=== PATIENT | female | born 1970 | race Asian ===

== ENCOUNTER → 2017-11-10 | Day surgery (SDC) | payer OTHER ==
[2017-11-09 09:26] LABS: BASOPHILS # (AUTO) 0.1 (0.0-0.1); BASOPHILS % 0.8 % (0.0-1.0); EOSINOPHILS # (AUTO) 0.1 (0.0-0.4); EOSINOPHILS % 2.2 % (0.0-6.0); HEMATOCRIT 32.7 % (34.2-44.1); HEMOGLOBIN 10.4 g/dL (12.0-16.0); LYMPHOCYTES # (AUTO) 2.3 (1.0-3.2); LYMPHOCYTES % 35.4 % (18.0-39.1); MEAN CORPUSCULAR HGB CONC 31.8 g/dL (31-35); MEAN CORPUSCULAR VOLUME 87.9 fL (81-99); MONOCYTES # (AUTO) 0.7 (0.2-0.8); MONOCYTES % 10.7 % (4.4-11.3); NEUTROPHILS # (AUTO) 3.2 (2.1-6.9); NEUTROPHILS % 50.6 % (38.7-80.0); PLATELET COUNT 442 x10e3/uL (140-360); RED BLOOD COUNT 3.72 x10e6/uL (3.6-5.1); RED CELL DISTRIBUTION WIDTH 13.6 % (11.7-14.4)
[2017-11-09 09:51] LABS: ALANINE AMINOTRANSFERASE 14 IU/L (0-55); ALBUMIN 4.2 g/dL (3.5-5.0); ALBUMIN/GLOBULIN RATIO 1.2 (0.8-2.0); ALKALINE PHOSPHATASE 76 IU/L (40-150); ANION GAP 13.5 mmol/L (8-16); BLOOD UREA NITROGEN 11 mg/dL (7-26); BUN/CREATININE RATIO 13 (6-25); CALCIUM 9.8 mg/dL (8.4-10.2); CARBON DIOXIDE 27 mmol/L (22-29); CHLORIDE 105 mmol/L (98-107); CREATININE, SERUM 0.82 mg/dL (0.57-1.11); EST GLOMERULAR FILTRATION RATE > 60 ML/MIN (60-); GLUCOSE 96 mg/dL (74-118); POTASSIUM 4.5 mmol/L (3.5-5.1); SODIUM 141 mmol/L (136-145)
[~2017-11-10] MED LIST: ACETAMINOPHEN 1000 MG/100 ML IV ONE; DEXAMETHASONE SOD PHOS INJ 4 MG/ML VIAL ONE; EQUATE ALLERGY PO; FENTANYL CITRATE/PF 100MCG/2 ML INJ ONE; KETOROLAC TROMETHAMINE 30 MG/ML VIAL ONE; LAMICTAL XR250 MG PO; METRONIDAZOLE 500MG/NS 100ML 100 ML IV ONE; MIDAZOLAM HCL 2 MG/2 ML VIAL ONE; ONDANSETRON HCL INJ 2 MG/ML VIAL ONE; PROPOFOL IV EMULSION 10 MG/ML 20 ML VIAL ONE; SEVOFLURANE INHAL SOLN 250 ML PEN BTL ONE; SILVER NITRATE SWABS ONE; VITAMIN C PO
--- NOTE | 2017-11-11 17:08 | Operative Report ---
DATE OF PROCEDURE: November 10, 2017 TEACHER DANCING: None. PREOPERATIVE DIAGNOSES 1. Abnormal uterine bleeding. 2. Fibroid uterus. POSTOPERATIVE DIAGNOSES 1. Abnormal uterine bleeding. 2. Fibroid uterus. PROCEDURES PERFORMED 1. Dilatation and curettage. 2. Hysteroscopic myomectomy. ANESTHESIA: General. ESTIMATED BLOOD LOSS: 100 mL. COMPLICATIONS: None. FINDINGS: Approximately 8 to 10 week size fibroid uterus noted on bimanual exam. Hysteroscopic findings included an approximately 3-cm fundal fibroid as well as a 0.5-cm right uterine wall fibroid, both submucosal. SPECIMENS: Included endometrial curettings with morcellated myoma. INDICATIONS: The patient is a 47-year-ol 2, para 2, with a history of fibroid uterus and abnormal uterine bleeding. PROCEDURE NOTE: The risks, benefits and alternatives of the procedure were discussed with the patient, and consent was obtained. The patient was taken to the operating room where general anesthesia was obtained without difficulty. She was then prepped and draped in the typical sterile fashion in the dorsal lithotomy position in [facility] stirrups. A time out was then done. The patient's bladder was drained with a straight catheter prior to the procedure. A weighted speculum was then placed in the vagina, and the anterior lip of the cervix was grasped with a single-toothed tenaculum. The cervix was then sequentially dilated with Hegar dilators to a #28. The TruClear hysteroscope was then advanced into the uterine fundus using normal saline as the distention media. The uterine cavity was explored with the above-noted findings. The TruClear device was then used to morcellate and remove the fibroids under direct visualization as well as perform a curettage of the endometrium under direct visualization. The entire right subcentimeter fibroid was removed. The fundal fibroid was approximately 90% removed at this time. At the end of the procedure, a fluid deficit of 2,500 mL was noted. The procedure was thus aborted. Survey of the uterine cavity at the end of the procedure revealed a normal-appearing and intact cavity with a small amount of residual fibroid at the fundus. All instruments were then removed from the patient's vagina. The tenaculum site required Bovie cauterization in order to achieve hemostasis. The uterus was noted to be hemostatic. The patient was awakened and brought to the recovery room in stable condition. All sponge, lap, and instrument counts were correct times 2. Job#: [id number]
== END | disposition home or self-care (01) ==
LOC: OR 10:18
PROVIDERS: ATTEND Obstetrics & Gynecology Obstetrics
DX: D25.0 Submucous leiomyoma of uterus (principal); G40.909 Epilepsy, unspecified, not intractable, without status epilepticus; G47.33 Obstructive sleep apnea (adult) (pediatric); Z88.6 Allergy status to analgesic agent; Z01.812 Encounter for preprocedural laboratory examination
CPT/HCPCS: 36415; 58561; 80053; 84702; 85025; 88305; J1100; J1885; J2250; J2405